=== PATIENT | male | born 1975 | race Caucasian/White ===

== ENCOUNTER → 2021-11-14 10:14 | Outpatient (BNVA) | payer BC, SELFPAY | PROVIDERS: Family Provider Family Medicine; PCP Family Medicine; Visit Provider Family Medicine | DX: G47.10 Hypersomnia, unspecified (principal); Z13.6 Encounter for screening for cardiovascular disorders; Z12.5 Encounter for screening for malignant neoplasm of prostate; M19.012 Primary osteoarthritis, left shoulder | CPT/HCPCS: 80053; 80061; 83036; 85025; G0103 ==

== ENCOUNTER 2021-12-24 20:00 | Outpatient (CLI) | payer BC, SELFPAY | END 2021-12-24 20:01 | disposition home or self-care (01) | LOC: SLEEP 12-25 06:26 | PROVIDERS: Family Provider Family Medicine; PCP Family Medicine; Visit Provider Family Medicine | DX: G47.33 Obstructive sleep apnea (adult) (pediatric) (principal) | CPT/HCPCS: 95810 ==

== ENCOUNTER 2023-03-29 09:14 | Emergency (ER) | payer BC, MEDICAID, SELFPAY ==
[2023-03-29 09:17] VITALS: BP 139/93; PULSE 82; TEMP 36.6; O2SAT 94; BMI 34.9
--- NOTE | 2023-03-29 09:17 | XR_ITS ---
WS: [id number] PORTABLE CHEST HISTORY: cxp COMPARISON: 12/12/2014 Lungs are clear and well expanded. No pleural effusion or pneumothorax. Cardiac size: Normal. Mediastinum/Aorta: Normal mediastinum. Advanced degenerative glenohumeral joint arthritis. IMPRESSION: Unremarkable portable chest.
--- NOTE | 2023-03-29 09:18 | ED_ITS ---
HPI - Chest Pain 2 General: Chief Complaint: Chest Pain Stated Complaint: chest pain Time Seen by Provider: 03/29/23 09:16 History of Present Illness: 48-year-old male presents emergency depa rtment complaints of left chest wall pain that radiated to the center and then to the right side into the right shoulder. He states his pain started last night and is continued throughout the night. He initially describes it as an 8 out of 10 he states he did become short of breath and sweaty. He is diabetic. He states that he went to his primary care provider today and while at the primary care provider's office EMS was called to transport him here to the emergency department. The patient states he received cardiac dose aspirin at the PCPs office the mail order biller did provide him with sublingual nitro as well as an inch of Nitropaste and states the pain is now a 1 out of 10 and dull. The patient does appear to be diaphoretic and very anxious. He does endorse initial nausea which is subsided now. He states that he is now almost pain-free after the nitroglycerin. He states he does not have a cardiac history he states he is noncompliant with his diabetic medications and has not seen a physician in 2 years. He does endorse shortness of breath. Associated symptoms: Reports dyspnea and nausea Review of Systems 2 General: Reports: 10 or more systems reviewed and unremarkable except in HPI and below Card: Reports: chest pain Resp: Reports: dyspnea GI: Reports: nausea PFS ED 2 PFSH: Surgical History No pertinent past surgical history Social History Smoking and tobacco/nicotine status: former use of tobacco/nicotine Physical Exam 2 Narrative: EXAM NARRATIVE: Constitutional: the patient appears well nourished and with normal development. Vital signs reviewed as documented. HENMT: Normocephalic, atraumatic. External ears normal appearance without drainage. Nose without drainage, normal appearance. Mucus membranes moist. Neck is supple, No jugular venous distension, trachea is midline, no appreciable carotid bruits. No lymphadenopathy. No meningeal signs. Flexion, extension and lateral rotation is without pain. Eyes: Pupils are equal, round, reactive to light and accommodation. No scleral icterus. Extra-ocular movement are intact. Thorax is symmetrical and with equal rise and fall with respirations. Resp: Lungs are clear to auscultation. No wheezes, rales, crackles or ronchi at present. Cardio: Regular rate and rhythm. Positive S1, S2. No appreciable murmurs, rubs or gallops. GI: Abdominal exam reveals normal bowel sounds to all quadrants. No organomegaly. No obvious palpable masses noted. No hepatomegally appreciated. Soft, non-tender to palpation. Extremity: Extremities are non-edematous and both femoral and pedal pulses are 2+ and equal bilaterally. Moves all extremities well, sensation in all extremities. Neuro: Alert and oriented x4, person, place, time and situation. Cranial nerves II through XII are grossly intact, there is no focal neurological deficits that I can appreciate at present. Motor strength in the upper and lower extremities are equal and bilateral 5/5. Psych: Cooperative, calm, normal thought process, appropriate judgment. Skin: No lesions, rashes. No gross abnormalities noted. Back: Symmetrical, no obvious deformity, No CVA tenderness Course 2 Reevaluation(s): Reevaluation #1: Patient vital signs remained stable repeat cardiac enzymes are negative, I discussed the radiographic examination and the laboratory values with the patient and offered him admission to the hospital for additional evaluation by cardiology and at this time he stated he would follow-up outpatient. Patient is pain-free at present does not appear to be having any shortness of breath. Time: 11:59 Vital Signs: Vital signs: Vital Signs Temperature 97.9 F 03/29/23 09:17 Pulse Rate 84 03/29/23 09:25 Blood Pressure 139/93 03/29/23 09:25 Pulse Oximetry 94 03/29/23 09:17 Oxygen Delivery Me thod Room Air 03/29/23 09:17 MDM - Chest Pain Medical Decision Making Physical exam completed and documented, I will obtain serial cardiac enzymes, serial twelve-lead EKGs, chest x-ray, CBC, CMP, urinalysis, B-type natriuretic peptide, PT/PTT/INR, and a chest x-ray. I will provide cardiac dose aspirin and nitroglycerin administration if indicated. I have reviewed previous and pertinent medical records for assist in obtaining beneficial medical information to improved the care and treatment of the patient. I will reevaluate and consider hospitalist consultation and cardiology consultation. Medical Records I reviewed the patient's medical records. Lab Data 03/29/23 09:21 03/29/23 09:21 Laboratory Results WBC 9.55 10^3/uL (3.29-11.43) 03/29/23 09:21 RBC 5.21 10^6/uL (3.85-5.65) 03/29/23 09:21 Hgb 15.00 g/dL (11.27-16.99) 03/29/23 09:21 Hct 44.6 % (37-53) 03/29/23 09:21 MCV 85.6 fl (82-101) 03/29/23 09:21 MCH 28.8 pg (27-33) 03/29/23 09:21 MCHC 33.6 g/dL (30-55) 03/29/23 09:21 RDW 12.8 % (12.1-15.1) 03/29/23 09:21 Plt Count 270 10^3/cmm (157-399) 03/29/23 09:21 MPV 11.1 fL (7.4-10.4) H 03/29/23 09:21 Neut % (Auto) 44.3 % 03/29/23 09:21 Lymph % (Auto) 40.9 % 03/29/23 09:21 [place] % (Auto) 9.1 % 03/29/23 09:21 Eos % (Auto) 4.0 % 03/29/23 09:21 Baso % (Auto) 1.2 % 03/29/23 09:21 Neut # (Auto) 4.23 10^3/uL (1.8-7.7) 03/29/23 09:21 Lymph # (Auto) 3.9 10^3/uL (0.8-4.8) 03/29/23 09:21 [place] # (Auto) 0.9 10^3/uL (0.2-0.9) 03/29/23 09:21 Eos # (Auto) 0.4 10^3/uL (0.0-0.8) 03/29/23 09:21 Baso # (Auto) 0.1 10^3/uL (0.0-0.1) 03/29/23 09:21 Nucleated RBC % (auto) 0 % 03/29/23 09:21 Nucleated RBCs # 0.0 /100WBC 03/29/23 09:21 PT 12.00 SECONDS (12.1-14.9) L 03/29/23 09:21 INR 0.86 (0.8-1.2) 03/29/23 09:21 APTT 25.9 SECONDS (23.9-36.7) 03/29/23 09:21 Sodium 138 mmol/L (136-145) 03/29/23 09:21 Potassium 4.4 mmol/L (3.5-5.1) 03/29/23 09:21 Chloride 105 mmol/L (98-107) 03/29/23 09:21 Carbon Dioxide 23 mmol/L (22-29) 03/29/23 09:21 Anion Gap 14.4 (5-19) 03/29/23 09:21 BUN 22 mg/dL (6-20) H 03/29/23 09:21 Creatinine 0.7 mg/dL (0.7-1.2) 03/29/23 09:21 GFR Calculation 119.4 mL/min (90-130) 03/29/23 09:21 Glucose 172 mg/dL (65-115) H 03/29/23 09:21 Calculated Osmolality 293 mOsm/kg (285-295) 03/29/23 09:21 Calcium 9.1 mg/dL (8.5-10.5) 03/29/23 09:21 Total Bilirubin 0.3 mg/dL (0.15-1.2) 03/29/23 09:21 AST 17 U/L (0-40) 03/29/23 09:21 ALT 26 U/L (0-41) 03/29/23 09:21 Alkaline Phosphatase 95 U/L (40-130) 03/29/23 09:21 Troponin T Baseline 7 ng/L (0-15) 03/29/23 09:21 Troponin T 120 Minute 6.00 ng/L (0-15) 03/29/23 11:20 Delta Troponin T -1.00 ABS# (0-10) L 03/29/23 11:20 NT-Pro-B Natriuret Pep 37 pg/mL (0-125) 03/29/23 09:21 Total Protein 7.2 g/dL (6.6-8.7) 03/29/23 09:21 Albumin 4.0 g/dL (3.5-5.2) 03/29/23 09:21 Globulin 3.2 g/dL (1.3-4.6) 03/29/23 09:21 Urine Color Yellow (Yellow) 03/29/23 10:56 Urine Appearance Clear (CLEAR) 03/29/23 10:56 Urine pH 5 (5-7) 03/29/23 10:56 Ur Specific [place] 1.020 (1.005-1.030) 03/29/23 10:56 Urine Protein Neg (Negative) 03/29/23 10:56 Urine Glucose (UA) Norm (Normal) 03/29/23 10:56 Urine Ketones Negative (Negative) 03/29/23 10:56 Urine Blood Neg (Negative) 03/29/23 10:56 Urine Nitrate Negative (Negative) 03/29/23 10:56 Urine Bilirubin Neg (Negative) 03/29/23 10:56 Urine Urobilinogen Neg mg/dL (Negative) 03/29/23 10:56 Ur Leukocyte Esterase Negative (Negative) 03/29/23 10:56 All radiology interpretation(s) finalized by discharge EKG Data EKG 1: Interpretation: Twelve-lead EKG demonstrates sinus rhythm with an incomplete right bundle branch block, ventricular rate of 81 bpm, ME interval 167, QRS duration 105, QT 357, QTc [address] elevation or depression at present to demonstrate acute ischemia or infarction. Discharge Plan Discharge Patient Disposition: Home Clinical Impression: Atypical chest pain Prescriptions: No Action ibuprofen 200 mg Tablet 800 mg PO Q6H PRN (Reason: Pain) Discharge Orders: Discharge ED (Routine); Ordered 03/29/23 Ordered By: Vic Nava Referrals: Brittney Randle DO [Primary Care Provider] - Justino Ladd M.D [Physician] - Discharge Diet: Low Salt Discharge Activity: Resume usual activity Patient Instructions: Opioid Safety, Pain Management Activity Restrictions/Additional Instructions: Activity Restrictions/Additional Instructions: Thank you for choosing [facility] for your healthcare needs today. Please realize that you were seen in the Emergency Department and that we are providing you with an emergency medical screening exam and this may not be a complete and all inclusive of all the testing and or medical work-up that you may need to determine your ailment or severity of your illness. It is very important that you follow-up as instructed with your Primary care provider or Specialist for additional evaluation and to discuss your medical treatment plan. You may return to the Emergency Department should you have concerns or if your condition changes or worsens in any way. Coding Level of Care Code ED Neuro Psych Sales Specialist for Todd Perez
--- NOTE | 2023-03-29 09:18 | ECG_ITS ---
[facility] Test Date: 2023-03-29 Pat Name: Constantine Humphries Department: Room: Gender: Male Area Manager: : 1975 Requested By: Vic Nava Order Number: [id number] Rigoberto MD: Arlin Frances M.D. Measurements Intervals [place] Rate: 81 P: 74 OR: 167 QRS: 74 QRSD: 105 T: 62 QT: 357 QTc: 415 Interpretive Statements SINUS RHYTHM INCOMPLETE RIGHT BUNDLE BRANCH BLOCK [90+ ms QRS DURATION, TERMINAL R IN V1/V2, 40+ ms S IN I/aVL/V4/V5/V6] No previous ECG available for comparison Electronically Signed On 03-29-2023 19:27:11 DIRECTOR INDUSTRIAL MUSEUM by Arlin Frances M.D. [id number]
[2023-03-29 09:25] VITALS: BP 139/93; PULSE 84
[2023-03-29] MEDS: nitroglycerin 1 gm/inch oint Pkt 1 INCH TOPICAL (09:25)
[2023-03-29 09:29] LABS: Basophils # 0.1 10^3/uL (0.0-0.1); Basophils % 1.2 %; Eosinophils # 0.4 10^3/uL (0.0-0.8); Hematocrit 44.6 % (37-53); Lymphocytes # 3.9 10^3/uL (0.8-4.8); Lymphocytes % 40.9 %; Mean Corpuscular HGB Conc 33.6 g/dL (30-55); Mean Corpuscular Hemoglobin 28.8 pg (27-33); Mean Corpuscular Volume 85.6 fl (82-101); Mean Platelet Volume 11.1 fL (7.4-10.4); Monocytes # 0.9 10^3/uL (0.2-0.9); Monocytes % 9.1 %; Neutrophils # 4.23 10^3/uL (1.8-7.7); Neutrophils % 44.3 %; Nucleated Red Blood Cells % 0 %; Platelet Count 270 10^3/cmm (157-399); Red Blood Count 5.21 10^6/uL (3.85-5.65); Red Cell Distribution Width 12.8 % (12.1-15.1); White Blood Count 9.55 10^3/uL (3.29-11.43)
[2023-03-29 09:41] LABS: INR 0.86 (0.8-1.2)
[2023-03-29 09:42] LABS: Partial Thromboplastin Time 25.9 SECONDS (23.9-36.7)
[2023-03-29 09:51] LABS: Troponin(5th) Baseline 7 ng/L (0-15)
--- NOTE | 2023-03-29 09:52 | PC.PHAR ---
pt states he was prescribed metformin to take years ago but states he has never taken it-pt states the only medications he is taking is ibuprofen prn-no meds pull up on ext med history
[2023-03-29 10:00] LABS: Alanine Aminotransferase 26 U/L (0-41); Alkaline Phosphatase 95 U/L (40-130); Anion Gap 14.4 (5-19); Aspartate Amino Transferase 17 U/L (0-40); Blood Urea Nitrogen 22 mg/dL (6-20); Calcium 9.1 mg/dL (8.5-10.5); Carbon Dioxide 23 mmol/L (22-29); Chloride 105 mmol/L (98-107); Creatinine Clr Calc Pharmacy 181.2543; Globulin 3.2 g/dL (1.3-4.6); Glomerular Filtration Rate 119.4 mL/min (90-130); Glucose 172 mg/dL (65-115); NT Pro B Type Natriuretic Pept 37 pg/mL (0-125); Osmolality Calculated 293 mOsm/kg (285-295); Potassium 4.4 mmol/L (3.5-5.1); Sodium 138 mmol/L (136-145); Total Bilirubin 0.3 mg/dL (0.15-1.2); Total Protein 7.2 g/dL (6.6-8.7)
[2023-03-29 11:09] LABS: Add Urine Microscopic? NO; Charge for UA Resulting for Rev
[2023-03-29 11:16] LABS: Bilirubin Urine Neg (Negative); Blood Urine Neg (Negative); Glucose Urine UA Norm (Normal); Ketones Urine Negative (Negative); Leukocyte Esterase Urine Negative (Negative); Nitrate Urine Negative (Negative); Protein Urine Neg (Negative); Urine Appearance Clear (CLEAR); Urine Color Yellow (Yellow); Urobilinogen Urine Neg (Negative); pH Urine 5 (5-7)
--- NOTE | 2023-03-29 11:20 | ECG_ITS ---
[facility] Test Date: 2023-03-29 Pat Name: Constantine Humphries Department: Room: Gender: Male Energy Conservation Representative: : 1975 Requested By: Vic Nava Order Number: [id number] Rigoberto MD: Arlin Frances M.D. Measurements Intervals [place] Rate: 81 P: 54 RI: 166 QRS: 67 QRSD: 100 T: 52 QT: 379 QTc: 441 Interpretive Statements SINUS RHYTHM INCOMPLETE RIGHT BUNDLE BRANCH BLOCK [90+ ms QRS DURATION, TERMINAL R IN V1/V2, 40+ ms S IN I/aVL/V4/V5/V6] Compared to ECG 03/29/2023 09:18:47 No significant changes Electronically Signed On 03-29-2023 19:34:55 HOUSE CALLS NURSE PRACTITIONER by Arlin Frances M.D. [id number]
== END 2023-03-29 12:44 | disposition home or self-care (01) ==
PROVIDERS: Emergency Provider Internal Medicine; PCP Family Medicine
DX: R07.89 Other chest pain (principal); Z87.891 Personal history of nicotine dependence
CPT/HCPCS: 36415; 71045; 80053; 81003; 83880; 84484; 85025; 85610; 85730; 93005; 99285

== ENCOUNTER → 2023-03-31 18:01 | Outpatient (BNVA) | payer BC, MEDICAID, SELFPAY | PROVIDERS: PCP Family Medicine; Visit Provider Registered Nurse Neonatal Intensive Care | DX: R09.81 Nasal congestion (principal) | CPT/HCPCS: 87426 ==

== ENCOUNTER 2023-11-18 06:00 | Outpatient (CLI) | payer BC, MEDICAID, SELFPAY | END 2023-11-18 06:01 | disposition home or self-care (01) | LOC: SLEEP 12-03 08:57 | PROVIDERS: PCP Pediatrics | DX: E11.9 Type 2 diabetes mellitus without complications (principal) | CPT/HCPCS: 80053; 83036; 84443; 85025 ==

== ENCOUNTER 2023-11-30 10:15 | Outpatient (CLI) | payer BC, MEDICAID, SELFPAY ==
--- NOTE | 2023-11-30 10:16 | XR_ITS ---
WS: [id number] Exam: XR shoulder RT min 2V* [id number] Date/Time of Exam: 11/30/2023 10:21 AM Reason For Exam: bilateral shoulder pain Comparison 12/21/2017. Advanced degenerative change of the glenohumeral joint with [id number] articulation. Large osteophy te projects from the medial inferior margin of the humeral head. There is deformity of the humeral he ad. Mild DJD of the AC joint. No fracture. XR/XR shoulder RT min 2V* [id number] IMPRESSION: 1. Advanced degenerative change of the glenohumeral joint with [id number].
--- NOTE | 2023-11-30 10:16 | XR_ITS ---
WS: [id number] Exam: XR shoulder LT min 2V* [id number] Date/Time of Exam: 11/30/2023 10:21 AM Reason For Exam: bilateral shoulder pain No acute fracture. Advanced degenerative change of the glenohumeral joint with [id number]. Large os teophyte projects from the medial margin of the humeral neck and head. Degenerative change at the AC joint. Normal soft tissues. XR/XR shoulder LT min 2V* [id number] IMPRESSION: 1. Advanced DJD of the glenohumeral joint with [id number]. AC joint DJD.
== END 2023-11-30 10:16 | disposition home or self-care (01) ==
LOC: RAD 10:16
PROVIDERS: PCP Pediatrics
DX: M19.011 Primary osteoarthritis, right shoulder (principal); M25.711 Osteophyte, right shoulder; M19.012 Primary osteoarthritis, left shoulder; M25.712 Osteophyte, left shoulder
CPT/HCPCS: 73030

== ENCOUNTER 2024-01-04 13:06 | Outpatient (CLI) | payer BC, MEDICAID, SELFPAY | END 2024-01-04 13:07 | disposition home or self-care (01) | LOC: SLEEP 13:07 | PROVIDERS: PCP Pediatrics | DX: G47.33 Obstructive sleep apnea (adult) (pediatric) (principal); G47.36 Sleep related hypoventilation in conditions classified elsewhere | CPT/HCPCS: G0399 ==

== ENCOUNTER → 2024-01-11 15:47 | Outpatient (BNVA) | payer BC, MEDICAID, SELFPAY | DX: E11.9 Type 2 diabetes mellitus without complications (principal) | CPT/HCPCS: 80053; 83036 ==

== ENCOUNTER 2024-05-28 07:48 | Emergency (ER) | payer BC, MEDICAID, SELFPAY ==
[2024-05-28 07:58] VITALS: BP 139/87; PULSE 93; RESP 17; TEMP 36.8; O2SAT 95; BMI 36.2
--- NOTE | 2024-05-28 08:21 | XRR_ITS ---
PROCEDURE INFORMATION: Exam: XR Right Hip Exam date and time: 05/28/2024 8:24 AM Age: 49 years old Clinical indication: Injury or trauma; Fall; Blunt trauma (contusions or hematomas); Right; Hip; Additional info: Fall, right hip pain TECHNIQUE: Imaging protocol: Radiologic exam of the right hip. Views: 1 view hip with pelvis when performed. COMPARISON: CT lumbar spine wo con* [id number] 12/06/2018 11:40 AM FINDINGS: Bones/joints: Unremarkable. No acute fracture. Soft tissues: Unremarkable. XR/XR hip RT 2-3V wo/w pel* [id number] IMPRESSION: No acute findings.
--- NOTE | 2024-05-28 08:22 | ED_ITS ---
HPI - Extremity Problem General: Chief complaint: Extremity Injury, Lower Stated complaint: right hip / leg pain Time Seen by Provider: 05/28/24 08:20 History of Present Illness: Patient presents to the ER with complaints of right hip pain after he slipped and fell in a freezer at work around 7 AM this morning. Patient landed on his right hip. He has pinpoint tenderness. He is able to partially bear weight. Patient denies hitting his head or loss of consciousness. Related Data Previous Rx's ?Medication ?Instructions ?Recorded CPAP with supplies and supplies #1 ea 01/18/24 Allergies Allergy/AdvReac Type Severity Reaction Status Date / Time No Known Allergies Allergy Verified 01/11/24 14:58 Review of Systems General: Reports: 10 or more systems reviewed and unremarkable except in HPI and below PFSH ED PFSH: Medical History ISABELLA (obstructive sleep apnea) Glenohumeral arthritis Elevated blood pressure reading without diagnosis of hypertension Bilateral shoulder pain Snoring Rash of face Surgical History No pertinent past surgical history Family History Father Cancer Rectal but unsure type. Social History Smoking and tobacco/nicotine status: never used tobacco/nicotine Second hand smoke exposure: No Alcohol intake: never Substance/Drug Use: never Adopted: No Caregiver/support person: No Lives independently: Yes Physical Exam Const: COMMON NORMALS: no acute distress, average body habitus, patient oriented x3, no limitations, healthy appearing, alert and well nourished HENMT: COMMON NORMALS: normocephalic, atraumatic, hearing grossly normal bilaterally, external ears normal, Normal external nose present, moist oral mucous membranes and oropharynx normal HEAD & SCALP: normocephalic and atraumatic NOSE: Normal external nose present EXTERNAL EAR: Yes external ears normal Neck/C-Spine: COMMON NORMALS: full ROM, no lymphadenopathy, supple, no meningeal signs, no JVD and Thyroid normal THYROID: Thyroid normal Chest: COMMONS NORMALS: normal inspection of the chest and normal palpation of entire chest wall Resp: COMMON NORMALS: normal respiratory effort, No retractions, No use of accessory muscles and clear to auscultation bilaterally AUSCULTATION: clear to auscultation bilaterally Cardio: COMMON NORMALS: no JVD, regular rate, regular rhythm, S1 normal heart sound present, S2 normal heart sound present, No gallops present (Cardio), No clicks present (Cardio), No murmurs present (Cardio) and No rub (Cardio) RATE: regular rate RHYTHM: regular rhythm HEART SOUNDS: S1 normal heart sound present and S2 normal heart sound present GI: COMMON NORMALS: Normal to inspection, nondistended, normoactive bowel sounds present, Soft to palpation, non-tender, No hepatosplenomegaly present and no masses PALPATION: Yes Soft to palpation and Yes No hepatosplenomegaly present Extremity: NARRATIVE EXTREMITY EXAM: Point tenderness at the right greater trochanter, no obvious deformity crepitus step-off. Neuro: COMMON NORMALS: patient oriented x3 SENSORIUM/ORIENTATION: Yes alert MENINGEAL SIGNS: Yes no meningeal signs Course Vital Signs: Vital signs: Vital Signs Temperature 98.3 F 05/28/24 07:58 Pulse Rate 93 05/28/24 07:58 Respiratory Rate 17 05/28/24 07:58 Blood Pressure 139/87 05/28/24 07:58 Pulse Oximetry 95 05/28/24 07:58 Oxygen Delivery Me thod Room Air 05/28/24 07:58 MDM - Extremity (Nontraumatic) Medical Decision Making X-ray preliminary read is myself as negative, patient is up walking around on his hip. With minimal pain. Medical Records I reviewed the patient's medical records. Lab Data I reviewed the patient's lab results. All radiology interpretation(s) finalized by discharge Discharge Plan Discharge Patient Disposition: Home Clinical Impression: Fall, Acute pain of right hip Condition: Stable Prescriptions: No Action (DME) CPAP with supplies and supplies See Rx Instructions .Route .MEDSULY Qty: 1 0RF Rx Instructions: Auto titrating CPAP 6-16cm Discharge Orders: Discharge ED (Routine); Ordered 05/28/24 Ordered By: Lorenzo Prieto Referrals: Bibi Alfredo NP [Primary Care Provider] - 1 week Patient Instructions: Hip Pain (ED) Activity Restrictions/Additional Instructions: Thank you for choosing [facility] for your healthcare needs today. Please realize that you were seen in the emergency department and that we are providing you with an emergency medical screening exam and this may not be a complete and all exclusive of all testing and/or medical workup we may need to determine your element or severity of your illness. It is very important that you follow-up as instructed with your primary care pr ovider or specialist for the additional evaluation and to discuss your medical treatment plan. You may return to the emergency department should you have concerns or if your condition changes or worsens in any way. Print Language: Portuguese Coding Level of Care Code ED Sanding Line Operator for Todd Perez
[2024-05-28 09:48] VITALS: BP 139/87; PULSE 87; O2SAT 99
== END 2024-05-28 09:58 | disposition home or self-care (01) ==
PROVIDERS: Emergency Provider Emergency Medicine
DX: M25.551 Pain in right hip (principal); W19.XXXA Unspecified fall, initial encounter
CPT/HCPCS: 73502; 99283

== ENCOUNTER → 2024-08-15 08:17 | Outpatient (BNVA) | payer MEDICAID, SELFPAY | PROVIDERS: Visit Provider Emergency Medicine | DX: J02.9 Acute pharyngitis, unspecified (principal) | CPT/HCPCS: 87070; 87071; 87880 ==

== ENCOUNTER 2025-02-06 13:23 | Emergency (ER) | payer BC, MEDICAID, SELFPAY ==
[2025-02-06 13:29] VITALS: BP 122/87; PULSE 91; RESP 18; TEMP 36.8; O2SAT 96
--- NOTE | 2025-02-06 14:01 | W.ED.GENADLT ---
HPI - General Adult General: Chief complaint: General Medical Stated complaint: numbness in left arm/hand Time Seen by Provider: 02/06/25 13:41 Source: patient Mode of arrival: ambulatory Limitations: no limitations History of Present Illness: Patient is a 49-year-old male with past medical history of glenohumeral arthritis who presents to the emergency department complaining of numbness in his left hand that has been going on for greater than a month. States he initially saw primary care for this received cortisone injection in his shoulder but has persisted with symptoms in his hand. Notes that the pain and numbness is getting worse primarily to the palmar aspect of his 3rd and 4th digits. He notes that he is continue to work with the symptoms and use his arm, has not take any medications. Does note he had an MRI scheduled at 1 point but has not heard back. No neck trauma or neck pain at this time. Does report chronic symptoms in his left shoulder, but does not feel that this is related. Denies any coolness or paralysis of the left upper extremity, no skin color changes or mottling. No direct trauma, no use of blood thinners. No fevers or other systemic symptoms. MD complaint: left hand numbness/pain Onset (ago): month(s) Associated symptoms: Deny chest pain, dyspnea, headache(s), nausea, rash or vomiting Related Data Previous Rx's ?Medication ?Instructions ?Recorded ketorolac 10 mg tablet 10 mg PO Q8H PRN pain 5 days #15 02/06/25 tabs prednisone 20 mg tablet 60 mg (3 x 20 mg) PO ONCE 5 days 02/06/25 #15 tabs Allergies Allergy/AdvReac Type Severity Reaction Status Date / Time No Known Allergies Allergy Verified 11/30/24 10:28 Review of Systems General: Reports: 10 or more systems reviewed and unremarkable except in HPI and below Const: Denies: fever(s) or chills Card: Denies: chest pain Resp: Denies: dyspnea or productive cough GI: Denies: abdominal pain, nausea, vomiting or diarrhea : Denies: flank pain Musc: Reports: extremity pain (left hand); Denies: neck pain, back pain, extremity swelling, joint pain, joint swelling, joint redness, joint warmth, limited range of motion or muscle weakness Skin/Breast: Denies: rash Neuro: Reports: numbness in extremities (left hand); Denies: headache(s) or weakness in extremities PFSH ED PFSH: Medical History Acute strain of neck muscle ISABELLA (obstructive sleep apnea) Glenohumeral arthritis Elevated blood pressure reading without diagnosis of hypertension Bilateral shoulder pain Snoring Rash of face Surgical History No pertinent past surgical history Family History Father Cancer Rectal but unsure type. Social History Smoking and tobacco/nicotine status: never used tobacco/nicotine Second hand smoke exposure: No Alcohol intake: never Substance/Drug Use: never Adopted: No Caregiver/support person: No Lives independently: Yes Physical Exam Const: COMMON NORMALS: no acute distress, patient oriented x3, no limitations, healthy appearing, alert and well nourished HENMT: COMMON NORMALS: normocephalic and atraumatic HEAD & SCALP: normocephalic and atraumatic Neck/C-Spine: COMMON NORMALS: full ROM, supple and no meningeal signs Resp: COMMON NORMALS: normal respiratory effort, No use of accessory muscles and clear to auscultation bilaterally AUSCULTATION: clear to auscultation bilaterally Cardio: COMMON NORMALS: regular rate and regular rhythm RATE: regular rate RHYTHM: regular rhythm Extremity: COMMON NORMALS: normal to inspection, full ROM, capillary refill normal, no joint enlargement and no clubbing, cyanosis or edema NARRATIVE EXTREMITY EXAM: Mild tenderness to palpation to the palmar aspect of the left 3rd and 4th digits. The left upper extremity is not cold and there are no skin color changes. Radial pulse is palpable. Normal capillary refill. Neuro: COMMON NORMALS: patient oriented x3, moves all extremities and no focal motor deficits SENSORIUM/ORIENTATION: Yes alert MENINGEAL SIGNS: Yes no meningeal signs OTHER: Endorsing decreased sensation to light touch within the median distribution of the left hand. Normal strength with finger abduction, able to make an okay sign, and resistance with wrist extension is intact. Skin: COMMON NORMALS: no rashes or lesions noted GENERAL SKIN EXAM: no rashes or lesions noted Course Vital Signs: Vital signs: Vital Signs Temperature 98.2 F 02/06/25 13:29 Pulse Rate 91 02/06/25 13:29 Respiratory Rate 18 02/06/25 13:29 Blood Pressure 122/87 02/06/25 13:29 Pulse Oximetry 96 02/06/25 13:29 Oxygen Delivery Me thod Room Air 02/06/25 13:29 MDM - General Adult Medical Decision Making This patient presenting with clinical signs and symptoms of likely cervical radiculopathy as he has numbness and decree sensation to light touch within the distribution of the median nerve on the left upper extremity. Symptoms have persisted for longer than a month, I have no suspicion at this time for any thromboembolic occlusive etiology or stroke like symptoms. Differential diagnosis also include carpal tunnel syndrome or undiagnosed diabetic neuropathy though less likely since symptoms are unilateral. There is no further action to be taken in the ED at this time, feel that he would benefit best by seeing Ortho/spine and receiving an MRI of his spine as he had previously had joint injections in the shoulder that did not ameliorate his symptoms. In the meantime we will start on short course of steroids and Toradol as he had not taken any medications, he is encouraged to rest and he will return with any new or worsening. No radiology studies performed this visit Discharge Plan Discharge Patient Disposition: Home Clinical Impression: Cervical radiculopathy Condition: Stable Prescriptions: New prednisone 20 mg tablet 60 mg PO ONCE 5 Days Qty: 15 0RF ketorolac 10 mg tablet 10 mg PO Q8H PRN (Reason: pain) 5 Days Qty: 15 0RF Discharge Orders: Discharge ED (Routine); Ordered 02/06/25 Ordered By: Berto Cabrera Referrals: Bibi Alfredo NP [Primary Care Provider, Family Practice] Patient Instructions: Patient Portal & Missael Instructions Activity Restrictions/Additional Instructions: Discharge Instructions Diagnosis: Cervical radiculopathy affecting the left arm What This Means: You have a condition where a nerve in your neck is being compressed or irritated, causing symptoms in your left arm, particularly in the palm side of your third and fourth fingers. This is a common condition that most patients recover from with conservative (non-surgical) treatment. Medications: You have been prescribed the following medications to help reduce inflammation and pain: - Prednisone (steroid): Take exactly as prescribed. This medication helps reduce inflammation around the affected nerve. Do not stop this medication abruptly. - Ketorolac (anti-inflammatory pain medication): Take as directed for pain relief. Activity Modifications: - Avoid activities that worsen your arm symptoms, such as looking up, turning your head to the affected side, or carrying heavy objects - You may use a soft cervical collar for short periods (less than 2 weeks) if it provides comfort, but avoid prolonged use - Gentle neck movements within your comfort zone are encouraged once acute pain improves What to Expect: - Most patients with cervical radiculopathy improve with nonsurgical treatment - Symptoms may take several weeks to months to fully resolve - Pain typically improves before numbness or weakness Follow-Up Care: - You will be referred to an orthopedic or outpatient coding specialist for further evaluation and management - Physical therapy may be recommended and can include strengthening, stretching, and potentially traction - If symptoms persist after 4-6 weeks of conservative treatment, additional imaging or interventions may be considered When to Seek Immediate Medical Attention: Contact your doctor or go to the emergency department if you experience: - New or worsening weakness in your arm or hand - Difficulty with balance or walking - Loss of bowel or bladder control - Symptoms in both arms - Severe, uncontrolled pain despite medications - Numbness or tingling that spreads to other areas Medication Side Effects to Watch For: While taking prednisone, you may experience: - Difficulty sleeping - Increased appetite - Nervousness or mood changes - Elevated blood sugar (especially if you have diabetes) Contact your doctor if these side effects are severe or bothersome. Important Reminders: - Take all medications as prescribed - Keep your follow-up appointments with the outpatient coding specialist - Most cases resolve with time and conservative treatment - Surgery is rarely needed and is reserved for patients with persistent disabling pain after 6-12 weeks of nonsurgical management or progressive neurologic deficits Print Language: Yoruba Coding Level of Care Code ED Lead Injection Mold Technician for Todd Perez
--- NOTE | 2025-02-08 07:43 | DCPLANNER ---
messaged ortho for er f/u
== END 2025-02-06 14:14 | disposition home or self-care (01) ==
PROVIDERS: Emergency Provider Physician Assistant
DX: M54.12 Radiculopathy, cervical region (principal)
CPT/HCPCS: 99283

== ENCOUNTER → 2025-02-15 13:41 | Outpatient (BNVA) | payer BC, MEDICAID, SELFPAY | PROVIDERS: Visit Provider Orthopaedic Surgery | DX: S16.1XXA Strain of muscle, fascia and tendon at neck level, initial encounter (principal); X58.XXXA Exposure to other specified factors, initial encounter | CPT/HCPCS: 72050 ==